=== PATIENT | female | born 1985 | race American Indian/Alaskan Native ===

== ENCOUNTER 2016-10-10 12:34 | Inpatient (IN) | payer MEDICAID ==
[~2016-10-10] VITALS: Ht 167.6 cm; Wt 113.4 kg
[2016-10-10 17:32] VITALS: BP 118/72
[2016-10-10] MEDS ORDERED: LURA40 PO (17:54)
[2016-10-10] MEDS ORDERED: FLUO-191 PO (17:54)
[2016-10-10] MEDS ORDERED: PALI6 PO (17:54)
[2016-10-10] MEDS ORDERED: ZOLPIDEM TARTRATE 10 MG TABLET PO PRN (18:15)
[2016-10-10 20:26] VITALS: BP 124/86
[2016-10-11] MEDS ORDERED: MAG HYDROX/AL HYDROX/SIMETH ES 30 ML SUSPENSION UDCUP PO PRN (07:30)
[2016-10-11] MEDS ORDERED: CloNIDine HCL 0.1 MG TABLET PO PRN (07:30)
[2016-10-11] MEDS ORDERED: BENZOCAINE/MENTHOL LOZENGE MM PRN (07:30)
[2016-10-11] MEDS ORDERED: MAGNESIUM HYDROXIDE SUSPENSION 30 ML UDCUP PO PRN (07:30)
[2016-10-11] MEDS ORDERED: LOPERAMIDE HCL 2 MG CAPSULE PO PRN (07:30)
[2016-10-11] MEDS ORDERED: PETROLATUM,WHITE 71 GM JELLY TP PRN (07:30)
[2016-10-11] MEDS ORDERED: BACITRACIN 28.4 GM OINTMENT TP PRN (07:30)
[2016-10-11] MEDS ORDERED: ONDANSETRON HCL 4 MG TABLET PO PRN (07:30)
[2016-10-11] MEDS ORDERED: ALBUTEROL SULFATE HFA 90 MCG/PUFF 8 GM INHALER IH PRN (07:30)
[2016-10-11 08:04] LABS: BASOPHILS # (AUTO) 0.02 K/uL (0.00-0.20); BASOPHILS % (AUTO) 0.2 % (0.0-2.0); EOSINOPHILS # (AUTO) 0.09 K/uL (0.00-0.70); EOSINOPHILS % (AUTO) 0.91 % (1.0-6.0); HEMATOCRIT 46.2 % (36-46); HEMOGLOBIN 15.3 g/dL (12.0-16.0); LYMPHOCYTES # (AUTO) 3.8 K/uL (1.0-4.8); LYMPHOCYTES % (AUTO) 39.1 % (22.0-44.0); MEAN CORPUSCULAR HEMOGLOBIN 29.8 pg (26.0-34.0); MEAN CORPUSCULAR VOLUME 90 fL (80-100); MONOCYTES # (AUTO) 0.6 K/uL (0.1-1.0); NEUTROPHILS # (AUTO) 5.2 K/uL (1.8-7.7); NEUTROPHILS % (AUTO) 53.8 % (40.0-70.0); PLATELET COUNT (AUTO) 306 K/uL (150-450); RED BLOOD CELL COUNT(AUTO) 5.12 MIL/uL (4.00-5.20); RED CELL DISTRIBUTION WIDTH 14.3 % (11.5-14.5); WHITE BLOOD COUNT (AUTO) 9.7 K/uL (4.5-11.0)
[2016-10-11 08:37] VITALS: BP 120/77
[2016-10-11 08:37] LABS: ALANINE AMINOTRANSFERASE 39 U/L (12-78); ALBUMIN 3.5 g/dL (3.4-5.0); ANION GAP 10 mmol/L (8-16); ASPARTATE AMINOTRANSFERASE 21 U/L (15-37); BILIRUBIN,TOTAL 0.6 mg/dL (0.1-1.0); CALCIUM, TOTAL 8.7 mg/dL (8.8-10.5); CARBON DIOXIDE 24 mmol/L (22-29); CHLORIDE 106 mmol/L (98-107); CREATININE 0.68 mg/dL (0.60-1.30); GLOMERULAR FILTR. RATE CALC > 60 mL/min (>60); POTASSIUM 4.1 mmol/L (3.5-5.1); SODIUM SERUM 140 mmol/L (136-145); THYROID STIMULATING HORMONE 0.71 uIU/mL (0.36-3.74); TOTAL PROTEIN, SERUM 7.5 g/dL (6.4-8.2); UREA NITROGEN, BLOOD 7 mg/dL (7-18)
[2016-10-11] MEDS: FLUoxetine HCL 20 MG CAPSULE PO SCH (09:45)
[2016-10-11] MEDS: LORazepam 2 MG TABLET PO PRN ×2 (12:05→17:01)
[2016-10-11] MEDS: IBUPROFEN 600 MG TABLET PO PRN (12:33)
[2016-10-11 16:38] VITALS: BP 117/80
[2016-10-11] MEDS: OLANZapine 10 MG TABLET PO SCH (20:36)
[2016-10-11] MEDS ORDERED: OLANZapine 5 MG TABLET PO SCH (21:00)
[2016-10-11] MEDS ORDERED: PNEUMOCOCCAL VACCINE POLYVALENT 0.5 ML VIAL [PPSV23] IM ONE (21:45)
[2016-10-12 06:12] VITALS: BP 129/89
[2016-10-12 08:10] VITALS: BP 124/70
[2016-10-12] MEDS: FLUoxetine HCL 20 MG CAPSULE PO SCH (09:36)
[2016-10-12] MEDS: LORazepam 2 MG TABLET PO PRN (14:26)
[2016-10-12] MEDS: IBUPROFEN 600 MG TABLET PO PRN (14:26)
[2016-10-12 16:15] VITALS: BP 132/83
[2016-10-12 16:30] VITALS: BP 130/78
[2016-10-12] MEDS: HALOPERIDOL 5 MG TABLET PO PRN (16:55)
[2016-10-12] MEDS: OLANZapine 10 MG TABLET PO SCH (20:20)
[2016-10-13] MEDS: LORazepam 2 MG TABLET PO PRN (06:53)
[2016-10-13] MEDS: IBUPROFEN 600 MG TABLET PO PRN (07:07)
[2016-10-13] MEDS: FLUoxetine HCL 20 MG CAPSULE PO SCH (08:16)
[2016-10-13 08:18] VITALS: BP 128/58
[2016-10-13] MEDS ORDERED: BENZOCAINE/MENTHOL LOZENGE PO PRN (12:30)
[2016-10-13 16:00] VITALS: BP 135/80
[2016-10-13] MEDS: OLANZapine 10 MG TABLET PO SCH (20:42)
[2016-10-14] MEDS: LORazepam 2 MG TABLET PO PRN ×2 (04:00→15:47)
[2016-10-14] MEDS: IBUPROFEN 600 MG TABLET PO PRN ×2 (04:40→13:21)
[2016-10-14] MEDS: FLUoxetine HCL 20 MG CAPSULE PO SCH (08:14)
[2016-10-14 08:53] VITALS: BP 123/80
[2016-10-14 09:19] LABS: APPEARANCE,URINE CLEAR (CLEAR); GLUCOSE, URINE (UA) NEGATIVE (NEGATIVE); KETONES,URINE NEGATIVE (NEGATIVE); LEUKOCYTE ESTERASE ,URINE MODERATE (NEGATIVE); OCCULT BLOOD,URINE NEGATIVE (NEGATIVE); PROTEIN,URINE NEGATIVE (NEGATIVE)
[2016-10-14 09:35] LABS: ADD UA MICROSCOPIC YES
[2016-10-14 09:39] LABS: RBC,URINE 0-2 /HPF (0-2); SQUAMOUS EPITHELIAL CELL,UR Moderate /LPF (None Seen)
[2016-10-14 13:15] VITALS: BP 126/80
[2016-10-14 14:10] VITALS: BP 126/77
[2016-10-14 16:02] VITALS: BP 125/79
[2016-10-14] MEDS: HALOPERIDOL 5 MG TABLET PO PRN (16:19)
[2016-10-14] MEDS: OLANZapine 10 MG TABLET PO SCH (20:13)
[2016-10-15] MEDS: IBUPROFEN 600 MG TABLET PO PRN (06:51)
[2016-10-15] MEDS: HydrOXYzine PAMOATE 25 MG CAPSULE PO PRN (06:51)
[2016-10-15 08:27] VITALS: BP 134/73
[2016-10-15] MEDS ORDERED: FLUoxetine HCL 20 MG CAPSULE PO SCH (09:00)
[2016-10-15] MEDS: CIPROFLOXACIN HCL 250 MG TABLET PO SCH ×2 (09:19→17:04)
[2016-10-15] MEDS: HALOPERIDOL 5 MG TABLET PO PRN ×2 (09:20→17:04)
[2016-10-15] MEDS: ACETAMINOPHEN 325 MG TABLET PO PRN (13:40)
[2016-10-15 16:39] VITALS: BP 121/98
[2016-10-15] MEDS ORDERED: OLANZapine 10 MG TABLET PO SCH (21:00)
[2016-10-16 03:19] VITALS: BP 118/86
[2016-10-16] MEDS: IBUPROFEN 600 MG TABLET PO PRN (03:27)
[2016-10-16 08:24] VITALS: BP 104/55
[2016-10-16] MEDS: CIPROFLOXACIN HCL 250 MG TABLET PO SCH ×2 (08:41→17:37)
[2016-10-16] MEDS ORDERED: FLUoxetine HCL 20 MG CAPSULE PO SCH (09:00)
[2016-10-16] MEDS: HydrOXYzine PAMOATE 25 MG CAPSULE PO PRN (13:23)
[2016-10-16] MEDS: HALOPERIDOL 5 MG TABLET PO PRN (13:23)
[2016-10-16 16:11] VITALS: BP 137/78
[2016-10-16] MEDS ORDERED: OLANZapine 10 MG TABLET PO SCH (21:00)
[2016-10-17 06:33] VITALS: BP 135/72
[2016-10-17 08:17] VITALS: BP 138/70
[2016-10-17] MEDS: CIPROFLOXACIN HCL 250 MG TABLET PO SCH (08:59)
[2016-10-17] MEDS ORDERED: FLUoxetine HCL 20 MG CAPSULE PO SCH (09:00)
[2016-10-17] MEDS: ACETAMINOPHEN 325 MG TABLET PO PRN (10:30)
[2016-10-17] MEDS ORDERED: OLAN10TA3 PO (11:11)
[2016-10-17] MEDS ORDERED: CIP250 PO (11:11)
== END 2016-10-17 13:30 | disposition home or self-care (01) | DRG 751 ==
LOC: B3A 19:17
PROVIDERS: ADMIT Psychiatry & Neurology Psychiatry; ATTEND Psychiatry & Neurology Psychiatry
PROC: HZ37ZZZ Individual Counseling for Substance Abuse Treatment, Motivational Enhancement (ICD-10-PCS; principal; 2016-10-11)
DX: F29 Unspecified psychosis not due to a substance or known physiological condition (principal); R45.851 Suicidal ideations; F15.20 Other stimulant dependence, uncomplicated; J45.909 Unspecified asthma, uncomplicated; F12.90 Cannabis use, unspecified, uncomplicated; F17.200 Nicotine dependence, unspecified, uncomplicated; E66.01 Morbid (severe) obesity due to excess calories; K59.00 Constipation, unspecified; F20.0 Paranoid schizophrenia; N39.0 Urinary tract infection, site not specified; F32.9 Major depressive disorder, single episode, unspecified; Z81.8 Family history of other mental and behavioral disorders; Z71.6 Tobacco abuse counseling; Z68.41 Body mass index [BMI] 40.0-44.9, adult; Z71.51 Drug abuse counseling and surveillance of drug abuser; Z28.21 Immunization not carried out because of patient refusal; Z79.899 Other long term (current) drug therapy
CPT/HCPCS: 80307; 84436; 84439; 84443; J3535

== ENCOUNTER 2016-12-16 15:35 | Inpatient (IN) | payer MEDICAID, OTHER ==
[~2016-12-16] VITALS: Ht 167.6 cm; Wt 112.4 kg
[~2016-12-16 15:35] MED LIST: CIP250 PO; FLUO-191 PO; OLAN10TA3 PO
[2016-12-16] MEDS ORDERED: ACETAMINOPHEN 500 MG TABLET PO ONE (17:15)
[2016-12-16] MEDS ORDERED: LORazepam 2 MG TABLET PO ONE (17:15)
[2016-12-16] MEDS ORDERED: HALOPERIDOL 5 MG TABLET PO ONE (17:15)
[2016-12-16 17:37] LABS: EOSINOPHILS % (AUTO) 1.3 % (1.0-6.0); HEMATOCRIT 43.8 % (36-46); LYMPHOCYTES # (AUTO) 3.9 K/uL (1.0-4.8); LYMPHOCYTES % (AUTO) 32.3 % (22.0-44.0); MEAN CORPUSCULAR HEMOGLOBIN 30.3 pg (26.0-34.0); MEAN CORPUSCULAR HGB CONC 34.2 G/dL (31.0-37.0); MEAN CORPUSCULAR VOLUME 89 fL (80-100); MONOCYTES # (AUTO) 0.6 K/uL (0.1-1.0); MONOCYTES % (AUTO) 5.1 % (2.0-9.0); NEUTROPHILS # (AUTO) 7.3 K/uL (1.8-7.7); NEUTROPHILS % (AUTO) 60.3 % (40.0-70.0); PLATELET COUNT (AUTO) 345 K/uL (150-450); RED BLOOD CELL COUNT(AUTO) 4.94 MIL/uL (4.00-5.20); RED CELL DISTRIBUTION WIDTH 13.9 % (11.5-14.5); WHITE BLOOD COUNT (AUTO) 12.1 K/uL (4.5-11.0)
[2016-12-16 17:44] LABS: ANION GAP 11 mmol/L (8-16); CALCIUM, TOTAL 8.7 mg/dL (8.8-10.5); CARBON DIOXIDE 24 mmol/L (22-29); CHLORIDE 105 mmol/L (98-107); CREATININE 0.82 mg/dL (0.60-1.30); GLOMERULAR FILTR. RATE CALC > 60 mL/min (>60); POTASSIUM 3.6 mmol/L (3.5-5.1); SODIUM SERUM 140 mmol/L (136-145); UREA NITROGEN, BLOOD 3 mg/dL (7-18)
[2016-12-16 17:50] LABS: APPEARANCE,URINE CLEAR (CLEAR); GLUCOSE, URINE (UA) NEGATIVE (NEGATIVE); KETONES,URINE NEGATIVE (NEGATIVE); OCCULT BLOOD,URINE NEGATIVE (NEGATIVE); PROTEIN,URINE NEGATIVE (NEGATIVE)
[2016-12-16 17:51] LABS: ALANINE AMINOTRANSFERASE 38 U/L (12-78); ALBUMIN 3.3 g/dL (3.4-5.0); ASPARTATE AMINOTRANSFERASE 20 U/L (15-37); BILIRUBIN,TOTAL 0.2 mg/dL (0.1-1.0); TOTAL PROTEIN, SERUM 7.5 g/dL (6.4-8.2)
[2016-12-16 17:53] LABS: LEUKOCYTE ESTERASE ,URINE SMALL (NEGATIVE); RBC,URINE 0-2 /HPF (0-2); SQUAMOUS EPITHELIAL CELL,UR Few /LPF (None Seen)
[2016-12-16] MEDS ORDERED: PROMETHAZINE HCL 25 MG TABLET PO PRN (18:00)
[2016-12-16] MEDS ORDERED: TUBERCULIN, PURIFIED PROTEIN DERIVATIVE 5 TU/0.1 ML SYG ID ONE (18:00)
[2016-12-16] MEDS ORDERED: HydrOXYzine PAMOATE 50 MG CAPSULE PO PRN (18:00)
[2016-12-16] MEDS ORDERED: GuaiFENesin/D-METHORPHAN [SUGAR-FREE] 200-20MG/10 ML SYRUP UDCUP PO PRN (18:00)
[2016-12-16] MEDS ORDERED: ZOLPIDEM TARTRATE 10 MG TABLET PO PRN (18:00)
[2016-12-16] MEDS ORDERED: LOPERAMIDE HCL 2 MG CAPSULE PO PRN (18:00)
[2016-12-16] MEDS ORDERED: MAGNESIUM HYDROXIDE SUSPENSION 30 ML UDCUP PO PRN (18:00)
[2016-12-16] MEDS ORDERED: OLANZapine 5 MG RAPDIS TABLET PO PRN (18:00)
[2016-12-16] MEDS ORDERED: MAG HYDROX/AL HYDROX/SIMETH ES 30 ML SUSPENSION UDCUP PO PRN (18:00)
[2016-12-16] MEDS ORDERED: PALIPERIDONE 3 MG ER TABLET PO PRN (18:15)
[2016-12-16] MEDS ORDERED: PALIPERIDONE PALMITATE 234 MG/1.5 ML SYRINGE IM ONE (18:15)
[2016-12-16] MEDS ORDERED: CEPHALEXIN MONOHYDRATE 500 MG CAPSULE PO ONE (18:30)
[2016-12-16] MEDS ORDERED: OLANZapine 5 MG RAPDIS TABLET PO SCH (21:00)
[2016-12-16 21:47] VITALS: BP 137/75
[2016-12-16] MEDS ORDERED: PNEUMOCOCCAL VACCINE POLYVALENT 0.5 ML VIAL [PPSV23] IM ONE (22:00)
[2016-12-16] MEDS: PALIPERIDONE 6 MG ER TABLET PO SCH (22:09)
[2016-12-16] MEDS: THIAMINE HCL 100 MG TABLET PO SCH (22:09)
[2016-12-17 06:22] VITALS: BP 112/63
[2016-12-17] MEDS: FOLIC ACID 1 MG TABLET PO SCH (09:03)
[2016-12-17] MEDS: FLUoxetine HCL 20 MG CAPSULE PO SCH (09:03)
[2016-12-17] MEDS: NALTREXONE HCL 50 MG TABLET PO SCH (09:03)
[2016-12-17] MEDS: MULTIVITAMINS WITH MINERALS, THERAPEUTIC TABLET PO SCH (09:03)
[2016-12-17] MEDS: CEPHALEXIN MONOHYDRATE 500 MG CAPSULE PO SCH ×3 (09:03→16:39)
[2016-12-17] MEDS: THIAMINE HCL 100 MG TABLET PO SCH ×2 (09:04→16:39)
[2016-12-17] MEDS: LORazepam 2 MG TABLET PO PRN (11:46)
[2016-12-17 16:00] VITALS: BP 122/81
[2016-12-17] MEDS: PALIPERIDONE 6 MG ER TABLET PO SCH (20:29)
[2016-12-18 06:25] VITALS: BP 117/71
[2016-12-18] MEDS: THIAMINE HCL 100 MG TABLET PO SCH ×2 (08:13→16:36)
[2016-12-18 08:14] VITALS: BP 135/78
[2016-12-18] MEDS: MULTIVITAMINS WITH MINERALS, THERAPEUTIC TABLET PO SCH (08:14)
[2016-12-18] MEDS: ACETAMINOPHEN 325 MG TABLET PO PRN (08:14)
[2016-12-18] MEDS: FLUoxetine HCL 20 MG CAPSULE PO SCH (08:14)
[2016-12-18] MEDS: LORazepam 2 MG TABLET PO PRN ×2 (08:14→13:45)
[2016-12-18] MEDS: NALTREXONE HCL 50 MG TABLET PO SCH (08:14)
[2016-12-18] MEDS: FOLIC ACID 1 MG TABLET PO SCH (08:14)
[2016-12-18 08:40] LABS: BASOPHILS # (AUTO) 0.03 K/uL (0.00-0.20); BASOPHILS % (AUTO) 0.3 % (0.0-2.0); EOSINOPHILS % (AUTO) 0.83 % (1.0-6.0); HEMATOCRIT 44.9 % (36-46); HEMOGLOBIN 14.9 g/dL (12.0-16.0); LYMPHOCYTES # (AUTO) 4.2 K/uL (1.0-4.8); MEAN CORPUSCULAR HEMOGLOBIN 30.2 pg (26.0-34.0); MEAN CORPUSCULAR HGB CONC 33.1 G/dL (31.0-37.0); MEAN CORPUSCULAR VOLUME 91 fL (80-100); MONOCYTES # (AUTO) 0.6 K/uL (0.1-1.0); NEUTROPHILS # (AUTO) 6.8 K/uL (1.8-7.7); NEUTROPHILS % (AUTO) 57.9 % (40.0-70.0); PLATELET COUNT (AUTO) 324 K/uL (150-450); RED BLOOD CELL COUNT(AUTO) 4.93 MIL/uL (4.00-5.20); RED CELL DISTRIBUTION WIDTH 13.8 % (11.5-14.5); WHITE BLOOD COUNT (AUTO) 11.7 K/uL (4.5-11.0)
[2016-12-18 09:07] VITALS: BP 148/76
[2016-12-18] MEDS ORDERED: IBUPROFEN 600 MG TABLET PO PRN (11:15)
[2016-12-18 12:31] VITALS: BP 138/77
[2016-12-18 16:03] VITALS: BP 130/84
[2016-12-18] MEDS: PALIPERIDONE 6 MG ER TABLET PO SCH (20:37)
[2016-12-19 05:50] VITALS: BP 129/85
[2016-12-19 08:03] LABS: HEMATOCRIT 43.5 % (36-46); HEMOGLOBIN 14.4 g/dL (12.0-16.0); MEAN CORPUSCULAR HEMOGLOBIN 30.3 pg (26.0-34.0); MEAN CORPUSCULAR HGB CONC 33.2 G/dL (31.0-37.0); MEAN CORPUSCULAR VOLUME 91 fL (80-100); PLATELET COUNT (AUTO) 311 K/uL (150-450); RED BLOOD CELL COUNT(AUTO) 4.76 MIL/uL (4.00-5.20); RED CELL DISTRIBUTION WIDTH 13.9 % (11.5-14.5); WHITE BLOOD COUNT (AUTO) 9.8 K/uL (4.5-11.0)
[2016-12-19 08:33] LABS: ANION GAP 10 mmol/L (8-16); CARBON DIOXIDE 24 mmol/L (22-29); CHLORIDE 106 mmol/L (98-107); CREATININE 0.72 mg/dL (0.60-1.30); GLOMERULAR FILTR. RATE CALC > 60 mL/min (>60); POTASSIUM 3.8 mmol/L (3.5-5.1); SODIUM SERUM 140 mmol/L (136-145); UREA NITROGEN, BLOOD 10 mg/dL (7-18)
[2016-12-19 08:37] LABS: HEMOGLOBIN A1C 5.6 % (4.5-6.2)
[2016-12-19 08:50] VITALS: BP 114/70
[2016-12-19] MEDS: MULTIVITAMINS WITH MINERALS, THERAPEUTIC TABLET PO SCH (08:54)
[2016-12-19] MEDS: FLUoxetine HCL 20 MG CAPSULE PO SCH (08:54)
[2016-12-19] MEDS: FOLIC ACID 1 MG TABLET PO SCH (08:54)
[2016-12-19] MEDS: NALTREXONE HCL 50 MG TABLET PO SCH (08:54)
[2016-12-19] MEDS: ACETAMINOPHEN 325 MG TABLET PO PRN (08:55)
[2016-12-19] MEDS: LORazepam 2 MG TABLET PO PRN ×2 (08:55→16:27)
[2016-12-19] MEDS: THIAMINE HCL 100 MG TABLET PO SCH ×2 (08:55→16:27)
[2016-12-19] MEDS ORDERED: PALI234D IM (13:37)
[2016-12-19] MEDS ORDERED: NALT50 PO (13:37)
[2016-12-19] MEDS ORDERED: FLUO-191 PO (13:37)
[2016-12-19 14:07] LABS: TOTAL CELLS COUNTED 100
[2016-12-19 14:10] LABS: LYMPHOCYTES % (MANUAL) 27 % (22-44)
[2016-12-19 16:20] VITALS: BP 124/83
[2016-12-20 03:40] VITALS: BP 122/74
[2016-12-20] MEDS: ACETAMINOPHEN 325 MG TABLET PO PRN (03:42)
[2016-12-20] MEDS: LORazepam 2 MG TABLET PO PRN ×2 (06:00→08:35)
[2016-12-20 08:15] VITALS: BP 133/73
[2016-12-20] MEDS: MULTIVITAMINS WITH MINERALS, THERAPEUTIC TABLET PO SCH (08:35)
[2016-12-20] MEDS: FLUoxetine HCL 20 MG CAPSULE PO SCH (08:35)
[2016-12-20] MEDS: NALTREXONE HCL 50 MG TABLET PO SCH (08:35)
[2016-12-20] MEDS: THIAMINE HCL 100 MG TABLET PO SCH (08:35)
[2016-12-20] MEDS: FOLIC ACID 1 MG TABLET PO SCH (08:35)
[2016-12-20] MEDS ORDERED: PALIPERIDONE PALMITATE 156 MG/ML SYRINGE IM ONE (09:00)
[2016-12-20] MEDS ORDERED: HC530C TP (10:24)
[2016-12-20] MEDS ORDERED: HYDROCORTISONE 0.5% 30 GM CREAM TP SCH (10:30)
== END 2016-12-20 12:30 | disposition home or self-care (01) | DRG 753 ==
LOC: EMS 15:39 → B3A 19:40
PROVIDERS: ADMIT Psychiatry & Neurology Psychiatry; ATTEND Psychiatry & Neurology Psychiatry
DX: F31.2 Bipolar disorder, current episode manic severe with psychotic features (principal); G93.41 Metabolic encephalopathy; K50.90 Crohn's disease, unspecified, without complications; N39.0 Urinary tract infection, site not specified; E83.51 Hypocalcemia; Z68.41 Body mass index [BMI] 40.0-44.9, adult; E66.01 Morbid (severe) obesity due to excess calories; F19.20 Other psychoactive substance dependence, uncomplicated; J45.909 Unspecified asthma, uncomplicated; Z72.0 Tobacco use; G47.00 Insomnia, unspecified; F10.10 Alcohol abuse, uncomplicated; R51 Headache
CPT/HCPCS: 82306; 83036; 83735; 84100; 85007; 87081; 87086; 90471; 99285

== ENCOUNTER 2019-01-02 00:29 | Emergency (ER) | payer MEDICAID, OTHER ==
[~2019-01-02] VITALS: Ht 167.6 cm; Wt 120.5 kg
[~2019-01-02 00:29] MED LIST changes: -CIP250 PO; +HC530C TP; +NALT50TA6 PO; -OLAN10TA3 PO; +PALI234D IM
[2019-01-02 01:36] LABS: BASOPHILS % (AUTO) 0.6 % (0.0-2.0); EOSINOPHILS % (AUTO) 0.8 % (1.0-6.0); HEMATOCRIT 43.2 % (36-46); HEMOGLOBIN 14.4 g/dL (12.0-16.0); LYMPHOCYTES % (AUTO) 36.8 % (22.0-44.0); MEAN CORPUSCULAR HEMOGLOBIN 31.4 pg (26.0-34.0); MEAN CORPUSCULAR HGB CONC 33.4 G/dL (31.0-37.0); MEAN CORPUSCULAR VOLUME 94 fL (80-100); MONOCYTES # (AUTO) 0.8 K/uL (0.1-1.0); MONOCYTES % (AUTO) 6.9 % (2.0-9.0); NEUTROPHILS # (AUTO) 5.9 K/uL (1.8-7.7); NEUTROPHILS % (AUTO) 54.9 % (40.0-70.0); PLATELET COUNT (AUTO) 246 K/uL (150-450); RED BLOOD CELL COUNT(AUTO) 4.59 MIL/uL (4.00-5.20); RED CELL DISTRIBUTION WIDTH 13.1 % (11.5-14.5)
[2019-01-02 01:47] LABS: ANION GAP 6 mmol/L (8-16); CALCIUM, TOTAL 8.8 mg/dL (8.8-10.5); CARBON DIOXIDE 27 mmol/L (22-29); CHLORIDE 107 mmol/L (98-107); GLOMERULAR FILTR. RATE CALC > 60 mL/min (>60); GLUCOSE,RANDOM 91 mg/dL (70-110); POTASSIUM 3.5 mmol/L (3.5-5.1); SODIUM SERUM 140 mmol/L (136-145); UREA NITROGEN, BLOOD 8 mg/dL (7-18)
[2019-01-02 01:55] LABS: B-TYPE NATRIURETIC PEPTIDE 11 pg/mL (0-100)
[2019-01-02 02:04] LABS: ALANINE AMINOTRANSFERASE 37 U/L (12-78); ALBUMIN 3.1 g/dL (3.4-5.0); ALKALINE PHOSPHATASE 78 U/L (46-116); ASPARTATE AMINOTRANSFERASE 24 U/L (15-37); BILIRUBIN,TOTAL 0.3 mg/dL (0.1-1.0); HCG,QUANTITATIVE < 1 mIU/mL (0-6)
[2019-01-02 03:30] LABS: AMPHET/METH SCREEN,URINE NEGATIVE (NEGATIVE); BARBITURATE SCREEN, URINE NEGATIVE (NEGATIVE); BENZODIAZEPINES SCREEN,URINE NEGATIVE (NEGATIVE); CANNABINOID SCREEN,URINE NEGATIVE (NEGATIVE); COCAINE SCREEN,URINE NEGATIVE (NEGATIVE); METHADONE SCREEN, URINE NEGATIVE (NEGATIVE); OPIATE SCREEN,URINE NEGATIVE (NEGATIVE)
[2019-01-02 03:31] LABS: PHENCYCLIDINE SCREEN,URINE NEGATIVE (NEGATIVE)
[2019-01-02 06:19] VITALS: BP 123/69
== END 2019-01-02 06:26 | disposition home or self-care (01) ==
LOC: EMS 00:31
DX: F20.0 Paranoid schizophrenia (principal); G47.9 Sleep disorder, unspecified; F32.9 Major depressive disorder, single episode, unspecified; F17.210 Nicotine dependence, cigarettes, uncomplicated; F12.90 Cannabis use, unspecified, uncomplicated; F19.90 Other psychoactive substance use, unspecified, uncomplicated
CPT/HCPCS: 36415; 80053; 80307; 83880; 84702; 85025; 99284; G0480

== ENCOUNTER 2022-04-19 13:27 | Inpatient (IN) | payer MEDICAID, OTHER ==
[~2022-04-19] VITALS: Ht 167.6 cm; Wt 124.9 kg
[~2022-04-19 13:27] MED LIST changes: +FLUO-177 PO; -FLUO-191 PO; -HC530C TP; +HYDR30CR44 TP
[2022-04-19] MEDS ORDERED: ARIP10TA38 PO (15:25)
[2022-04-19] MEDS ORDERED: LOPE-232 PO (15:25)
[2022-04-19] MEDS ORDERED: CHLO50TA61 PO (15:26)
[2022-04-19] MEDS ORDERED: CHLO200T21 PO (15:29)
[2022-04-19] MEDS ORDERED: AMLO2.5T96 PO (15:29)
[2022-04-19] MEDS ORDERED: CHLO50TA53 PO (15:29)
[2022-04-19] MEDS ORDERED: TADA5TAB PO (15:29)
[2022-04-19] MEDS ORDERED: DIVA-112 PO (15:32)
[2022-04-19] MEDS ORDERED: MECL-134 PO (15:32)
[2022-04-19] MEDS ORDERED: MULT-1203 PO (15:32)
[2022-04-19] MEDS ORDERED: SERT-162 PO (15:32)
[2022-04-19] MEDS ORDERED: LORA2I IM (15:32)
[2022-04-19] MEDS ORDERED: CHLO50I IM ×2 (15:39)
[2022-04-19] MEDS ORDERED: BENZ1LOZ77 PO (15:39)
[2022-04-19] MEDS ORDERED: ATOR20TA86 PO (15:39)
[2022-04-19] MEDS ORDERED: METF-1211 PO (15:39)
[2022-04-19] MEDS ORDERED: MELA1TAB17 PO (15:39)
[2022-04-19] MEDS ORDERED: TRAZ-252 PO (15:45)
[2022-04-19] MEDS ORDERED: MAG10ORA PO (15:45)
[2022-04-19] MEDS ORDERED: ACET-2247 PO (15:45)
[2022-04-19] MEDS ORDERED: HYDR50CA7 PO (15:45)
[2022-04-19] MEDS ORDERED: BISA10SU11 PR (15:45)
[2022-04-19] MEDS ORDERED: NA P133E4 PR (15:45)
[2022-04-19] MEDS ORDERED: MAGN-169 PO (15:45)
[2022-04-19 15:59] LABS: BASOPHILS % (AUTO) 0.8 % (0.0-2.0); EOSINOPHILS % (AUTO) 0.4 % (1.0-6.0); HEMATOCRIT 43.2 % (36-46); HEMOGLOBIN 14.6 g/dL (12.0-16.0); LYMPHOCYTES # (AUTO) 4.7 K/uL (1.0-4.8); LYMPHOCYTES % (AUTO) 36.8 % (22.0-44.0); MEAN CORPUSCULAR HEMOGLOBIN 32.3 pg (26.0-34.0); MEAN CORPUSCULAR HGB CONC 33.9 G/dL (31.0-37.0); MEAN CORPUSCULAR VOLUME 95 fL (80-100); MONOCYTES % (AUTO) 7.7 % (2.0-9.0); NEUTROPHILS # (AUTO) 6.9 K/uL (1.8-7.7); NEUTROPHILS % (AUTO) 54.3 % (40.0-70.0); PLATELET COUNT (AUTO) 271 K/uL (150-450); RED BLOOD CELL COUNT(AUTO) 4.53 MIL/uL (4.00-5.20); RED CELL DISTRIBUTION WIDTH 13.2 % (11.5-14.5)
[2022-04-19] MEDS ORDERED: OLANZapine 5 MG TABLET PO ONE (16:00)
[2022-04-19 16:12] LABS: COVID AG,FIA SOURCE NASAL SWAB
[2022-04-19 16:20] LABS: CHLORIDE 103 mmol/L (98-107); POTASSIUM 4.2 mmol/L (3.5-5.1); SODIUM SERUM 138 mmol/L (136-145)
[2022-04-19 16:34] LABS: ANION GAP 7 mmol/L (8-16); CALCIUM, TOTAL 9.5 mg/dL (8.8-10.5); CARBON DIOXIDE 28 mmol/L (22-29); CREATININE 0.82 mg/dL (0.60-1.30); GLUCOSE,RANDOM 121 mg/dL (70-110); UREA NITROGEN, BLOOD 8 mg/dL (7-18)
[2022-04-19 16:36] LABS: GLOMERULAR FILTR. RATE CALC > 60 mL/min (>60)
[2022-04-19 16:41] LABS: ALANINE AMINOTRANSFERASE 48 U/L (12-78); ALBUMIN 3.2 g/dL (3.4-5.0); ALKALINE PHOSPHATASE 70 U/L (46-116); ASPARTATE AMINOTRANSFERASE 24 U/L (15-37); BILIRUBIN,TOTAL 0.3 mg/dL (0.1-1.0); TOTAL PROTEIN, SERUM 7.4 g/dL (6.4-8.2)
[2022-04-19 20:15] VITALS: BP 125/80
[2022-04-19] MEDS ORDERED: INFLUENZA VIRUS VACCINE QVS 2022-23 (6MO+)/PF 60 MCG/0.5 ML SYRINGE IM. ONE (20:45)
[2022-04-19] MEDS ORDERED: PNEUMOCOCCAL VACCINE POLYVALENT 0.5 ML VIAL [PPSV23] IM. ONE (21:00)
[2022-04-20] MEDS: LORazepam 2 MG TABLET PO PRN (08:15)
[2022-04-20] MEDS: HALOPERIDOL 5 MG TABLET PO PRN (08:18)
[2022-04-20 08:53] VITALS: BP 145/89
[2022-04-20] MEDS ORDERED: DOCUSATE SODIUM 100 MG CAPSULE PO PRN (11:30)
[2022-04-20] MEDS ORDERED: NICOTINE 14 MG/24 HOUR PATCH TD PRN (11:30)
[2022-04-20] MEDS ORDERED: MAGNESIUM HYDROXIDE SUSPENSION 30 ML UDCUP PO PRN (11:30)
[2022-04-20] MEDS ORDERED: ONDANSETRON HCL 4 MG TABLET PO PRN (11:30)
[2022-04-20] MEDS ORDERED: CloNIDine HCL 0.1 MG TABLET PO PRN (11:30)
[2022-04-20] MEDS ORDERED: PETROLATUM,WHITE 28 GM JELLY TP PRN (11:30)
[2022-04-20] MEDS: SERTRALINE HCL 100 MG TABLET PO SCH (11:56)
[2022-04-20] MEDS: ChlorproMAZINE HCL 50 MG TABLET PO SCH (12:13)
[2022-04-20] MEDS: DIVALPROEX SODIUM 500 MG DR TABLET PO SCH ×2 (12:34→17:04)
[2022-04-20 16:07] VITALS: BP 120/68
[2022-04-20] MEDS: MetFORMIN HCL 500 MG TABLET PO SCH (17:42)
[2022-04-20] MEDS: ChlorproMAZINE HCL 100 MG TABLET PO SCH (20:40)
[2022-04-20] MEDS: ATORVASTATIN CALCIUM 20 MG TABLET PO SCH (20:40)
[2022-04-21] MEDS: MetFORMIN HCL 500 MG TABLET PO SCH ×2 (06:42→17:15)
[2022-04-21 07:21] LABS: APPEARANCE,URINE CLEAR (CLEAR); BILIRUBIN,URINE NEGATIVE (NEGATIVE); GLUCOSE, URINE (UA) NEGATIVE (NEGATIVE); KETONES,URINE NEGATIVE (NEGATIVE); LEUKOCYTE ESTERASE ,URINE SMALL (NEGATIVE); NITRATE,URINE NEGATIVE (NEGATIVE); OCCULT BLOOD,URINE NEGATIVE (NEGATIVE); PROTEIN,URINE TRACE mg/dL (NEGATIVE); SPECIFIC GRAVITIY, URINE 1.023 (1.003-1.030); UROBILINOGEN,URINE <=1.0 mg/dL (<=1.0)
[2022-04-21 07:37] LABS: AMPHET/METH SCREEN,URINE NEGATIVE (NEGATIVE); BARBITURATE SCREEN, URINE NEGATIVE (NEGATIVE); BENZODIAZEPINES SCREEN,URINE NEGATIVE (NEGATIVE); CANNABINOID SCREEN,URINE NEGATIVE (NEGATIVE); COCAINE SCREEN,URINE NEGATIVE (NEGATIVE); METHADONE SCREEN, URINE NEGATIVE (NEGATIVE); OPIATE SCREEN,URINE NEGATIVE (NEGATIVE)
[2022-04-21 07:38] LABS: PHENCYCLIDINE SCREEN,URINE NEGATIVE (NEGATIVE)
[2022-04-21 07:48] LABS: BACTERIA,URINE Few /HPF (None Seen); RBC,URINE None Seen /HPF (0-2); SQUAMOUS EPITHELIAL CELL,UR Few /LPF (None Seen); WBC,URINE 0-2 /HPF (0-5)
[2022-04-21] MEDS: DIVALPROEX SODIUM 500 MG DR TABLET PO SCH ×3 (08:19→17:15)
[2022-04-21] MEDS: AmLODIPine BESYLATE 2.5 MG TABLET PO SCH (08:19)
[2022-04-21] MEDS: ChlorproMAZINE HCL 50 MG TABLET PO SCH (08:19)
[2022-04-21] MEDS: SERTRALINE HCL 100 MG TABLET PO SCH (08:19)
[2022-04-21 08:39] VITALS: BP 130/90
[2022-04-21 16:40] VITALS: BP 121/83
[2022-04-21] MEDS: ChlorproMAZINE HCL 100 MG TABLET PO SCH (20:26)
[2022-04-21] MEDS: ATORVASTATIN CALCIUM 20 MG TABLET PO SCH (20:26)
[2022-04-22] MEDS: MetFORMIN HCL 500 MG TABLET PO SCH ×2 (06:34→16:48)
[2022-04-22 08:23] VITALS: BP 139/85
[2022-04-22] MEDS: SERTRALINE HCL 100 MG TABLET PO SCH (08:42)
[2022-04-22] MEDS: DIVALPROEX SODIUM 500 MG DR TABLET PO SCH ×3 (08:42→16:48)
[2022-04-22] MEDS: AmLODIPine BESYLATE 2.5 MG TABLET PO SCH (08:42)
[2022-04-22] MEDS: ChlorproMAZINE HCL 50 MG TABLET PO SCH (08:43)
[2022-04-22] MEDS: LORazepam 2 MG TABLET PO PRN (11:51)
[2022-04-22 16:09] VITALS: BP 132/77
[2022-04-22] MEDS: ATORVASTATIN CALCIUM 20 MG TABLET PO SCH (20:06)
[2022-04-22] MEDS: ChlorproMAZINE HCL 100 MG TABLET PO SCH (20:07)
[2022-04-23] MEDS: MetFORMIN HCL 500 MG TABLET PO SCH ×2 (06:36→17:12)
[2022-04-23 08:20] VITALS: BP 125/87
[2022-04-23] MEDS: AmLODIPine BESYLATE 2.5 MG TABLET PO SCH (09:20)
[2022-04-23] MEDS: DIVALPROEX SODIUM 500 MG DR TABLET PO SCH ×3 (09:20→17:12)
[2022-04-23] MEDS: ChlorproMAZINE HCL 50 MG TABLET PO SCH (09:20)
[2022-04-23] MEDS: SERTRALINE HCL 100 MG TABLET PO SCH (09:20)
[2022-04-23 16:38] VITALS: BP 118/72
[2022-04-23] MEDS: ChlorproMAZINE HCL 100 MG TABLET PO SCH (20:29)
[2022-04-23] MEDS: ATORVASTATIN CALCIUM 20 MG TABLET PO SCH (20:29)
[2022-04-24] MEDS: MetFORMIN HCL 500 MG TABLET PO SCH ×2 (06:44→16:45)
[2022-04-24] MEDS: ChlorproMAZINE HCL 50 MG TABLET PO SCH (08:24)
[2022-04-24] MEDS: SERTRALINE HCL 100 MG TABLET PO SCH (08:24)
[2022-04-24] MEDS: DIVALPROEX SODIUM 500 MG DR TABLET PO SCH ×3 (08:24→16:45)
[2022-04-24] MEDS: AmLODIPine BESYLATE 2.5 MG TABLET PO SCH (08:24)
[2022-04-24 08:38] VITALS: BP 150/88
[2022-04-24] MEDS: MAG HYDROX/AL HYDROX/SIMETH ES 30 ML SUSPENSION UDCUP PO PRN (08:44)
[2022-04-24] MEDS: LORazepam 2 MG TABLET PO PRN (08:44)
[2022-04-24 16:31] VITALS: BP 124/68
[2022-04-24] MEDS: ATORVASTATIN CALCIUM 20 MG TABLET PO SCH (20:26)
[2022-04-24] MEDS: ChlorproMAZINE HCL 100 MG TABLET PO SCH (20:26)
[2022-04-25] MEDS: MetFORMIN HCL 500 MG TABLET PO SCH ×2 (06:34→16:58)
[2022-04-25 08:30] VITALS: BP 150/100
[2022-04-25] MEDS: SERTRALINE HCL 100 MG TABLET PO SCH (08:32)
[2022-04-25] MEDS: ChlorproMAZINE HCL 50 MG TABLET PO SCH (08:32)
[2022-04-25] MEDS: DIVALPROEX SODIUM 500 MG DR TABLET PO SCH ×3 (08:33→16:58)
[2022-04-25] MEDS: AmLODIPine BESYLATE 2.5 MG TABLET PO SCH (08:33)
[2022-04-25 17:20] VITALS: BP 98/56
[2022-04-25] MEDS: ATORVASTATIN CALCIUM 20 MG TABLET PO SCH (20:58)
[2022-04-25] MEDS: ChlorproMAZINE HCL 100 MG TABLET PO SCH (20:58)
[2022-04-25] MEDS: HALOPERIDOL 5 MG TABLET PO PRN (20:58)
[2022-04-25] MEDS: LORazepam 2 MG TABLET PO PRN (20:59)
[2022-04-25 21:12] LABS: COVID AG,FIA SOURCE NASAL SWAB
[2022-04-26] MEDS: ZOLPIDEM TARTRATE 10 MG TABLET PO PRN ×2 (01:11→21:08)
[2022-04-26] MEDS: HALOPERIDOL 5 MG TABLET PO PRN ×2 (01:35→21:08)
[2022-04-26] MEDS: LORazepam 2 MG TABLET PO PRN ×2 (01:35→21:08)
[2022-04-26] MEDS: MetFORMIN HCL 500 MG TABLET PO SCH ×2 (06:35→16:14)
[2022-04-26 08:34] VITALS: BP 117/74
[2022-04-26] MEDS: ChlorproMAZINE HCL 50 MG TABLET PO SCH (08:43)
[2022-04-26] MEDS: AmLODIPine BESYLATE 2.5 MG TABLET PO SCH (08:47)
[2022-04-26] MEDS: DIVALPROEX SODIUM 500 MG DR TABLET PO SCH ×3 (08:47→16:14)
[2022-04-26] MEDS: SERTRALINE HCL 100 MG TABLET PO SCH (08:47)
[2022-04-26 17:17] VITALS: BP 137/76
[2022-04-26] MEDS ORDERED: BENZOCAINE/MENTHOL LOZENGE PO PRN (20:15)
[2022-04-26] MEDS: ATORVASTATIN CALCIUM 20 MG TABLET PO SCH (21:07)
[2022-04-26] MEDS: ChlorproMAZINE HCL 100 MG TABLET PO SCH (21:07)
[2022-04-27] MEDS: MetFORMIN HCL 500 MG TABLET PO SCH ×2 (06:32→16:24)
[2022-04-27] MEDS: ChlorproMAZINE HCL 50 MG TABLET PO SCH (08:17)
[2022-04-27] MEDS: DIVALPROEX SODIUM 500 MG DR TABLET PO SCH ×3 (08:18→16:24)
[2022-04-27] MEDS: AmLODIPine BESYLATE 2.5 MG TABLET PO SCH (08:18)
[2022-04-27] MEDS: SERTRALINE HCL 100 MG TABLET PO SCH (08:18)
[2022-04-27 09:24] VITALS: BP 139/97
[2022-04-27 16:16] VITALS: BP 138/71
[2022-04-27] MEDS: LORazepam 2 MG TABLET PO PRN (20:41)
[2022-04-27] MEDS: ChlorproMAZINE HCL 100 MG TABLET PO SCH (20:41)
[2022-04-27] MEDS: ATORVASTATIN CALCIUM 20 MG TABLET PO SCH (20:41)
[2022-04-27] MEDS: ZOLPIDEM TARTRATE 10 MG TABLET PO PRN (21:43)
[2022-04-28] MEDS: LORazepam 2 MG TABLET PO PRN ×2 (02:18→20:50)
[2022-04-28] MEDS: MetFORMIN HCL 500 MG TABLET PO SCH ×2 (06:30→16:11)
[2022-04-28 08:10] VITALS: BP 128/78
[2022-04-28] MEDS: DIVALPROEX SODIUM 500 MG DR TABLET PO SCH ×3 (08:19→16:11)
[2022-04-28] MEDS: SERTRALINE HCL 100 MG TABLET PO SCH (08:19)
[2022-04-28] MEDS: AmLODIPine BESYLATE 2.5 MG TABLET PO SCH (08:19)
[2022-04-28] MEDS: ChlorproMAZINE HCL 50 MG TABLET PO SCH (08:19)
[2022-04-28 16:15] VITALS: BP 105/68
[2022-04-28] MEDS: ATORVASTATIN CALCIUM 20 MG TABLET PO SCH (20:34)
[2022-04-28] MEDS: ChlorproMAZINE HCL 100 MG TABLET PO SCH (20:35)
[2022-04-28] MEDS: ZOLPIDEM TARTRATE 10 MG TABLET PO PRN (20:50)
[2022-04-28 21:47] VITALS: BP 130/86
[2022-04-29] MEDS: MetFORMIN HCL 500 MG TABLET PO SCH ×2 (06:34→17:30)
[2022-04-29] MEDS: LORazepam 2 MG TABLET PO PRN (08:09)
[2022-04-29] MEDS: ChlorproMAZINE HCL 50 MG TABLET PO SCH (08:09)
[2022-04-29] MEDS: DIVALPROEX SODIUM 500 MG DR TABLET PO SCH ×3 (08:09→17:30)
[2022-04-29] MEDS: AmLODIPine BESYLATE 2.5 MG TABLET PO SCH (08:09)
[2022-04-29] MEDS: SERTRALINE HCL 100 MG TABLET PO SCH (08:09)
[2022-04-29 08:53] VITALS: BP 132/87
[2022-04-29] MEDS: IBUPROFEN 400 MG TABLET PO PRN ×2 (09:13→21:59)
[2022-04-29 10:13] VITALS: BP 128/84
[2022-04-29 16:21] VITALS: BP 136/73
[2022-04-29] MEDS: ATORVASTATIN CALCIUM 20 MG TABLET PO SCH (21:04)
[2022-04-29] MEDS: ChlorproMAZINE HCL 100 MG TABLET PO SCH (21:04)
[2022-04-29 21:56] VITALS: BP 130/78
[2022-04-29] MEDS: ZOLPIDEM TARTRATE 10 MG TABLET PO PRN (22:26)
[2022-04-30] MEDS: MetFORMIN HCL 500 MG TABLET PO SCH ×2 (06:43→16:33)
[2022-04-30] MEDS: IBUPROFEN 400 MG TABLET PO PRN (08:02)
[2022-04-30] MEDS: SERTRALINE HCL 100 MG TABLET PO SCH (08:09)
[2022-04-30] MEDS: ChlorproMAZINE HCL 50 MG TABLET PO SCH (08:09)
[2022-04-30] MEDS: AmLODIPine BESYLATE 2.5 MG TABLET PO SCH (08:09)
[2022-04-30] MEDS: DIVALPROEX SODIUM 500 MG DR TABLET PO SCH ×3 (08:09→16:33)
[2022-04-30 08:21] VITALS: BP 143/94
[2022-04-30 16:39] VITALS: BP 116/72
[2022-04-30] MEDS: ChlorproMAZINE HCL 100 MG TABLET PO SCH (20:23)
[2022-04-30] MEDS: ATORVASTATIN CALCIUM 20 MG TABLET PO SCH (20:23)
[2022-04-30 21:24] VITALS: BP 139/90
[2022-04-30] MEDS: ZOLPIDEM TARTRATE 10 MG TABLET PO PRN (21:28)
[2022-04-30] MEDS: ACETAMINOPHEN 325 MG TABLET PO PRN (21:28)
[2022-05-01] MEDS: MetFORMIN HCL 500 MG TABLET PO SCH ×2 (07:05→16:28)
[2022-05-01 08:17] VITALS: BP 152/94
[2022-05-01] MEDS: DIVALPROEX SODIUM 500 MG DR TABLET PO SCH ×3 (08:20→16:28)
[2022-05-01] MEDS: ChlorproMAZINE HCL 50 MG TABLET PO SCH (08:20)
[2022-05-01] MEDS: AmLODIPine BESYLATE 2.5 MG TABLET PO SCH (08:20)
[2022-05-01] MEDS: SERTRALINE HCL 100 MG TABLET PO SCH (08:21)
[2022-05-01] MEDS: ALBUTEROL SULFATE HFA 90 MCG/PUFF 8 GM INHALER IH PRN ×2 (12:16→20:26)
[2022-05-01 16:08] VITALS: BP 128/73
[2022-05-01 20:45] VITALS: BP 125/75
[2022-05-01] MEDS: IBUPROFEN 400 MG TABLET PO PRN (20:47)
[2022-05-01] MEDS: ATORVASTATIN CALCIUM 20 MG TABLET PO SCH (20:52)
[2022-05-01] MEDS: ChlorproMAZINE HCL 100 MG TABLET PO SCH (20:52)
[2022-05-01] MEDS: ZOLPIDEM TARTRATE 10 MG TABLET PO PRN (23:59)
[2022-05-01] MEDS: LORazepam 2 MG TABLET PO PRN (23:59)
[2022-05-02 06:47] LABS: COVID AG,FIA SOURCE NASAL SWAB
[2022-05-02] MEDS: MetFORMIN HCL 500 MG TABLET PO SCH ×2 (07:04→17:51)
[2022-05-02] MEDS: SERTRALINE HCL 100 MG TABLET PO SCH (08:34)
[2022-05-02] MEDS: DIVALPROEX SODIUM 500 MG DR TABLET PO SCH ×3 (08:34→16:28)
[2022-05-02] MEDS: ChlorproMAZINE HCL 50 MG TABLET PO SCH (08:34)
[2022-05-02] MEDS: AmLODIPine BESYLATE 2.5 MG TABLET PO SCH (08:35)
[2022-05-02 10:00] VITALS: BP 115/62
[2022-05-02 16:00] VITALS: BP 117/57
[2022-05-02] MEDS: ALBUTEROL SULFATE HFA 90 MCG/PUFF 8 GM INHALER IH PRN (19:36)
[2022-05-02] MEDS: ChlorproMAZINE HCL 100 MG TABLET PO SCH (20:08)
[2022-05-02] MEDS: ATORVASTATIN CALCIUM 20 MG TABLET PO SCH (20:09)
[2022-05-02] MEDS: HALOPERIDOL 5 MG TABLET PO PRN (20:44)
[2022-05-02] MEDS: LORazepam 2 MG TABLET PO PRN (20:44)
[2022-05-03] MEDS: HALOPERIDOL 5 MG TABLET PO PRN (04:48)
[2022-05-03] MEDS: LORazepam 2 MG TABLET PO PRN (05:39)
[2022-05-03] MEDS: MetFORMIN HCL 500 MG TABLET PO SCH ×2 (06:34→17:38)
[2022-05-03 08:55] VITALS: BP 122/71
[2022-05-03] MEDS: AmLODIPine BESYLATE 2.5 MG TABLET PO SCH (09:06)
[2022-05-03] MEDS: ChlorproMAZINE HCL 50 MG TABLET PO SCH (09:06)
[2022-05-03] MEDS: SERTRALINE HCL 100 MG TABLET PO SCH (09:06)
[2022-05-03] MEDS: DIVALPROEX SODIUM 500 MG DR TABLET PO SCH ×3 (09:06→17:38)
[2022-05-03 16:05] VITALS: BP 126/72
[2022-05-03 17:53] VITALS: BP 118/62
[2022-05-03] MEDS: ATORVASTATIN CALCIUM 20 MG TABLET PO SCH (20:16)
[2022-05-03] MEDS: ChlorproMAZINE HCL 100 MG TABLET PO SCH (20:16)
[2022-05-03 22:40] VITALS: BP 131/83
[2022-05-03] MEDS: IBUPROFEN 400 MG TABLET PO PRN (22:44)
[2022-05-04] MEDS: MetFORMIN HCL 500 MG TABLET PO SCH ×2 (06:44→17:29)
[2022-05-04 07:51] LABS: CHOL/HDL RATIO 2.6 (3.9-5.7)
[2022-05-04 08:09] VITALS: BP 119/75
[2022-05-04] MEDS: DIVALPROEX SODIUM 500 MG DR TABLET PO SCH ×3 (08:41→17:28)
[2022-05-04] MEDS: SERTRALINE HCL 100 MG TABLET PO SCH (08:41)
[2022-05-04] MEDS: ChlorproMAZINE HCL 50 MG TABLET PO SCH (08:41)
[2022-05-04] MEDS: AmLODIPine BESYLATE 2.5 MG TABLET PO SCH (08:41)
[2022-05-04 11:24] VITALS: BP 124/78
[2022-05-04] MEDS: IBUPROFEN 400 MG TABLET PO PRN ×2 (11:24→20:49)
[2022-05-04 12:24] VITALS: BP 118/76
[2022-05-04 15:34] VITALS: BP 122/74
[2022-05-04] MEDS: ACETAMINOPHEN 325 MG TABLET PO PRN (15:34)
[2022-05-04 16:34] VITALS: BP 118/76
[2022-05-04] MEDS: GuaiFENesin/D-METHORPHAN [SUGAR-FREE] 200-20MG/10 ML SYRUP UDCUP PO PRN (18:51)
[2022-05-04] MEDS: ZOLPIDEM TARTRATE 10 MG TABLET PO PRN (20:07)
[2022-05-04] MEDS: ChlorproMAZINE HCL 100 MG TABLET PO SCH (20:07)
[2022-05-04] MEDS: ATORVASTATIN CALCIUM 20 MG TABLET PO SCH (20:07)
[2022-05-04 20:49] VITALS: BP 120/74
[2022-05-05] MEDS: MetFORMIN HCL 500 MG TABLET PO SCH ×2 (06:35→17:59)
[2022-05-05 08:00] VITALS: BP 125/66
[2022-05-05] MEDS: ChlorproMAZINE HCL 50 MG TABLET PO SCH (08:43)
[2022-05-05] MEDS: SERTRALINE HCL 100 MG TABLET PO SCH (08:43)
[2022-05-05] MEDS: LORazepam 2 MG TABLET PO PRN ×2 (08:43→16:34)
[2022-05-05] MEDS: DIVALPROEX SODIUM 500 MG DR TABLET PO SCH ×3 (08:43→17:59)
[2022-05-05] MEDS: AmLODIPine BESYLATE 2.5 MG TABLET PO SCH (08:43)
[2022-05-05] MEDS: ALBUTEROL SULFATE HFA 90 MCG/PUFF 8 GM INHALER IH PRN ×2 (11:36→16:33)
[2022-05-05 16:31] VITALS: BP 118/71
[2022-05-05] MEDS: HALOPERIDOL 5 MG TABLET PO PRN (16:33)
[2022-05-05] MEDS: IBUPROFEN 400 MG TABLET PO PRN (16:34)
[2022-05-05] MEDS: ATORVASTATIN CALCIUM 20 MG TABLET PO SCH (20:05)
[2022-05-05] MEDS: ChlorproMAZINE HCL 100 MG TABLET PO SCH (20:05)
[2022-05-05] MEDS: ZOLPIDEM TARTRATE 10 MG TABLET PO PRN (20:05)
[2022-05-05 20:46] VITALS: BP 127/63
[2022-05-05] MEDS: ACETAMINOPHEN 325 MG TABLET PO PRN (20:46)
[2022-05-06] MEDS: MetFORMIN HCL 500 MG TABLET PO SCH ×2 (06:37→18:19)
[2022-05-06] MEDS: DIVALPROEX SODIUM 500 MG DR TABLET PO SCH ×3 (09:32→18:19)
[2022-05-06] MEDS: LORazepam 2 MG TABLET PO PRN (09:32)
[2022-05-06] MEDS: AmLODIPine BESYLATE 2.5 MG TABLET PO SCH (09:32)
[2022-05-06] MEDS: ChlorproMAZINE HCL 50 MG TABLET PO SCH (09:32)
[2022-05-06] MEDS: SERTRALINE HCL 100 MG TABLET PO SCH (09:32)
[2022-05-06] MEDS: ALBUTEROL SULFATE HFA 90 MCG/PUFF 8 GM INHALER IH PRN (09:51)
[2022-05-06 11:28] VITALS: BP 132/73
[2022-05-06 17:05] VITALS: BP 140/88
[2022-05-06] MEDS: IBUPROFEN 400 MG TABLET PO PRN (18:20)
[2022-05-06] MEDS: HALOPERIDOL 5 MG TABLET PO PRN (19:26)
[2022-05-06] MEDS: ZOLPIDEM TARTRATE 10 MG TABLET PO PRN (20:23)
[2022-05-06] MEDS: ChlorproMAZINE HCL 100 MG TABLET PO SCH (20:23)
[2022-05-06] MEDS: ATORVASTATIN CALCIUM 20 MG TABLET PO SCH (20:23)
[2022-05-07] MEDS: MetFORMIN HCL 500 MG TABLET PO SCH ×2 (06:39→17:05)
[2022-05-07 08:26] VITALS: BP 114/63
[2022-05-07] MEDS: DIVALPROEX SODIUM 500 MG DR TABLET PO SCH ×3 (10:25→17:05)
[2022-05-07] MEDS: ChlorproMAZINE HCL 50 MG TABLET PO SCH (10:25)
[2022-05-07] MEDS: SERTRALINE HCL 100 MG TABLET PO SCH (10:25)
[2022-05-07] MEDS: AmLODIPine BESYLATE 2.5 MG TABLET PO SCH (10:25)
[2022-05-07 12:38] LABS: COVID AG,FIA SOURCE NASAL SWAB
[2022-05-07] MEDS: ALBUTEROL SULFATE HFA 90 MCG/PUFF 8 GM INHALER IH PRN ×2 (14:11→22:35)
[2022-05-07] MEDS: HALOPERIDOL 5 MG TABLET PO PRN ×2 (15:46→21:24)
[2022-05-07] MEDS: LORazepam 2 MG TABLET PO PRN (15:46)
[2022-05-07 16:12] VITALS: BP 106/72
[2022-05-07 17:05] VITALS: BP 106/72
[2022-05-07] MEDS: IBUPROFEN 400 MG TABLET PO PRN (17:05)
[2022-05-07 18:05] VITALS: BP 108/68
[2022-05-07] MEDS: ChlorproMAZINE HCL 100 MG TABLET PO SCH (20:55)
[2022-05-07] MEDS: ATORVASTATIN CALCIUM 20 MG TABLET PO SCH (20:55)
[2022-05-07] MEDS: ZOLPIDEM TARTRATE 10 MG TABLET PO PRN (21:24)
[2022-05-08] MEDS: MetFORMIN HCL 500 MG TABLET PO SCH ×2 (07:04→17:44)
[2022-05-08 08:58] VITALS: BP 124/90
[2022-05-08 09:16] LABS: BASOPHILS % (AUTO) 2.1 % (0.0-2.0); EOSINOPHILS % (AUTO) 1.3 % (1.0-6.0); HEMATOCRIT 41.4 % (36-46); HEMOGLOBIN 14.1 g/dL (12.0-16.0); LYMPHOCYTES # (AUTO) 2.8 K/uL (1.0-4.8); MEAN CORPUSCULAR HGB CONC 34.1 G/dL (31.0-37.0); MEAN CORPUSCULAR VOLUME 94 fL (80-100); MONOCYTES # (AUTO) 0.4 K/uL (0.1-1.0); MONOCYTES % (AUTO) 8.6 % (2.0-9.0); NEUTROPHILS # (AUTO) 1.7 K/uL (1.8-7.7); PLATELET COUNT (AUTO) 207 K/uL (150-450); RED CELL DISTRIBUTION WIDTH 12.9 % (11.5-14.5)
[2022-05-08] MEDS: ChlorproMAZINE HCL 50 MG TABLET PO SCH (11:16)
[2022-05-08] MEDS: AmLODIPine BESYLATE 2.5 MG TABLET PO SCH (11:16)
[2022-05-08] MEDS: DIVALPROEX SODIUM 500 MG DR TABLET PO SCH ×3 (11:16→17:44)
[2022-05-08] MEDS: SERTRALINE HCL 100 MG TABLET PO SCH (11:16)
[2022-05-08 13:56] VITALS: BP 124/91
[2022-05-08] MEDS: IBUPROFEN 400 MG TABLET PO PRN (13:56)
[2022-05-08 14:56] VITALS: BP 122/88
[2022-05-08] MEDS: LORazepam 2 MG TABLET PO PRN (14:58)
[2022-05-08] MEDS: HALOPERIDOL 5 MG TABLET PO PRN ×2 (14:58→21:00)
[2022-05-08] MEDS: ALBUTEROL SULFATE HFA 90 MCG/PUFF 8 GM INHALER IH PRN (17:09)
[2022-05-08] MEDS: ChlorproMAZINE HCL 100 MG TABLET PO SCH (20:42)
[2022-05-08] MEDS: ATORVASTATIN CALCIUM 20 MG TABLET PO SCH (20:42)
[2022-05-08] MEDS: ZOLPIDEM TARTRATE 10 MG TABLET PO PRN (20:59)
[2022-05-08] MEDS: LOPERAMIDE HCL 2 MG CAPSULE PO PRN (21:04)
[2022-05-09] MEDS: MetFORMIN HCL 500 MG TABLET PO SCH ×2 (07:00→16:41)
[2022-05-09 09:00] VITALS: BP 118/82
[2022-05-09] MEDS: AmLODIPine BESYLATE 2.5 MG TABLET PO SCH (09:02)
[2022-05-09] MEDS: ChlorproMAZINE HCL 50 MG TABLET PO SCH (09:02)
[2022-05-09] MEDS: DIVALPROEX SODIUM 500 MG DR TABLET PO SCH ×3 (09:02→16:41)
[2022-05-09] MEDS: SERTRALINE HCL 100 MG TABLET PO SCH (09:02)
[2022-05-09 15:49] VITALS: BP 124/84
[2022-05-09] MEDS: ACETAMINOPHEN 325 MG TABLET PO PRN (15:49)
[2022-05-09 16:00] VITALS: BP 124/84
[2022-05-09] MEDS: PEG 400/HYPROMELLOSE/GLYCERIN 15 ML OPHTHALMIC SOLUTION OU PRN (18:21)
[2022-05-09 19:47] VITALS: BP 129/82
[2022-05-09] MEDS: IBUPROFEN 400 MG TABLET PO PRN (19:48)
[2022-05-09] MEDS: ZOLPIDEM TARTRATE 10 MG TABLET PO PRN (20:14)
[2022-05-09] MEDS: ATORVASTATIN CALCIUM 20 MG TABLET PO SCH (20:14)
[2022-05-09] MEDS: ChlorproMAZINE HCL 100 MG TABLET PO SCH (20:14)
[2022-05-10] MEDS: MetFORMIN HCL 500 MG TABLET PO SCH ×2 (06:35→16:20)
[2022-05-10 08:00] VITALS: BP 117/67
[2022-05-10] MEDS: SERTRALINE HCL 100 MG TABLET PO SCH (09:17)
[2022-05-10] MEDS: DIVALPROEX SODIUM 500 MG DR TABLET PO SCH ×3 (09:17→16:20)
[2022-05-10] MEDS: ChlorproMAZINE HCL 50 MG TABLET PO SCH (09:17)
[2022-05-10] MEDS: AmLODIPine BESYLATE 2.5 MG TABLET PO SCH (09:17)
[2022-05-10 12:25] VITALS: BP 124/62
[2022-05-10] MEDS: ACETAMINOPHEN 325 MG TABLET PO PRN (12:25)
[2022-05-10] MEDS: ALBUTEROL SULFATE HFA 90 MCG/PUFF 8 GM INHALER IH PRN (12:29)
[2022-05-10 16:30] VITALS: BP 131/71
[2022-05-10] MEDS: IBUPROFEN 400 MG TABLET PO PRN (16:30)
[2022-05-10 16:40] VITALS: BP 131/71
[2022-05-10] MEDS: ZOLPIDEM TARTRATE 10 MG TABLET PO PRN (20:11)
[2022-05-10] MEDS: ChlorproMAZINE HCL 100 MG TABLET PO SCH (20:12)
[2022-05-10] MEDS: ATORVASTATIN CALCIUM 20 MG TABLET PO SCH (20:12)
[2022-05-11] MEDS: MetFORMIN HCL 500 MG TABLET PO SCH ×2 (06:36→17:11)
[2022-05-11] MEDS: AmLODIPine BESYLATE 2.5 MG TABLET PO SCH (08:01)
[2022-05-11] MEDS: SERTRALINE HCL 100 MG TABLET PO SCH (08:01)
[2022-05-11] MEDS: DIVALPROEX SODIUM 500 MG DR TABLET PO SCH ×3 (08:01→17:11)
[2022-05-11] MEDS: ChlorproMAZINE HCL 50 MG TABLET PO SCH (08:02)
[2022-05-11 08:22] VITALS: BP 131/77
[2022-05-11 14:00] VITALS: BP 133/88
[2022-05-11] MEDS: IBUPROFEN 400 MG TABLET PO PRN (14:00)
[2022-05-11 15:00] VITALS: BP 128/84
[2022-05-11 16:06] VITALS: BP 133/88
[2022-05-11] MEDS: HALOPERIDOL 5 MG TABLET PO PRN (18:26)
[2022-05-11] MEDS: ZOLPIDEM TARTRATE 10 MG TABLET PO PRN (20:05)
[2022-05-11] MEDS: ATORVASTATIN CALCIUM 20 MG TABLET PO SCH (20:05)
[2022-05-11] MEDS: ChlorproMAZINE HCL 100 MG TABLET PO SCH (20:06)
[2022-05-12] MEDS: MetFORMIN HCL 500 MG TABLET PO SCH ×2 (06:40→16:34)
[2022-05-12] MEDS: ChlorproMAZINE HCL 50 MG TABLET PO SCH (08:48)
[2022-05-12] MEDS: SERTRALINE HCL 100 MG TABLET PO SCH (08:49)
[2022-05-12] MEDS: DIVALPROEX SODIUM 500 MG DR TABLET PO SCH ×3 (08:49→16:34)
[2022-05-12] MEDS: AmLODIPine BESYLATE 2.5 MG TABLET PO SCH (08:51)
[2022-05-12 09:22] VITALS: BP 114/68
[2022-05-12 11:48] VITALS: BP 130/69
[2022-05-12] MEDS: IBUPROFEN 400 MG TABLET PO PRN (11:48)
[2022-05-12] MEDS: HALOPERIDOL 5 MG TABLET PO PRN ×2 (14:38→21:40)
[2022-05-12 16:19] VITALS: BP 155/93
[2022-05-12 17:06] LABS: GLUCOMETER DEV NAME(LOC) 3E.C; GLUCOSE,POINT OF CARE 105 MG/DL (70-110)
[2022-05-12] MEDS: LOPERAMIDE HCL 2 MG CAPSULE PO PRN (18:42)
[2022-05-12] MEDS: ChlorproMAZINE HCL 100 MG TABLET PO SCH (20:57)
[2022-05-12] MEDS: ATORVASTATIN CALCIUM 20 MG TABLET PO SCH (20:57)
[2022-05-13] MEDS: MetFORMIN HCL 500 MG TABLET PO SCH ×2 (06:36→18:07)
[2022-05-13 08:30] VITALS: BP 113/74
[2022-05-13] MEDS: ChlorproMAZINE HCL 50 MG TABLET PO SCH (10:20)
[2022-05-13] MEDS: AmLODIPine BESYLATE 2.5 MG TABLET PO SCH (10:20)
[2022-05-13] MEDS: DIVALPROEX SODIUM 500 MG DR TABLET PO SCH ×3 (10:20→18:07)
[2022-05-13] MEDS: SERTRALINE HCL 100 MG TABLET PO SCH (10:20)
[2022-05-13] MEDS: LORazepam 2 MG TABLET PO PRN (15:30)
[2022-05-13] MEDS: HALOPERIDOL 5 MG TABLET PO PRN (15:30)
[2022-05-13 16:41] VITALS: BP 127/69
[2022-05-13] MEDS: ChlorproMAZINE HCL 100 MG TABLET PO SCH (20:17)
[2022-05-13] MEDS: ATORVASTATIN CALCIUM 20 MG TABLET PO SCH (20:17)
[2022-05-14] MEDS: MetFORMIN HCL 500 MG TABLET PO SCH ×2 (06:57→17:01)
[2022-05-14 07:36] LABS: COVID AG,FIA SOURCE NASAL SWAB
[2022-05-14 08:16] VITALS: BP 114/72
[2022-05-14] MEDS: ChlorproMAZINE HCL 50 MG TABLET PO SCH (08:55)
[2022-05-14] MEDS: SERTRALINE HCL 100 MG TABLET PO SCH (08:58)
[2022-05-14] MEDS: DIVALPROEX SODIUM 500 MG DR TABLET PO SCH ×3 (08:58→17:01)
[2022-05-14] MEDS: HALOPERIDOL 5 MG TABLET PO PRN (08:58)
[2022-05-14] MEDS: AmLODIPine BESYLATE 2.5 MG TABLET PO SCH (08:58)
[2022-05-14] MEDS: LORazepam 2 MG TABLET PO PRN (08:58)
[2022-05-14 16:48] VITALS: BP 112/63
[2022-05-14] MEDS: ATORVASTATIN CALCIUM 20 MG TABLET PO SCH (20:35)
[2022-05-14] MEDS: ChlorproMAZINE HCL 100 MG TABLET PO SCH (20:35)
[2022-05-15] MEDS: MetFORMIN HCL 500 MG TABLET PO SCH ×2 (07:00→16:35)
[2022-05-15] MEDS: SERTRALINE HCL 100 MG TABLET PO SCH (08:41)
[2022-05-15] MEDS: AmLODIPine BESYLATE 2.5 MG TABLET PO SCH (08:41)
[2022-05-15] MEDS: ChlorproMAZINE HCL 50 MG TABLET PO SCH (08:41)
[2022-05-15] MEDS: DIVALPROEX SODIUM 500 MG DR TABLET PO SCH ×3 (08:41→16:35)
[2022-05-15 09:00] VITALS: BP 144/85
[2022-05-15 12:28] VITALS: BP 136/79
[2022-05-15] MEDS: ACETAMINOPHEN 325 MG TABLET PO PRN (12:28)
[2022-05-15 16:00] VITALS: BP 136/84
[2022-05-15 16:19] VITALS: BP 136/84
[2022-05-15] MEDS: IBUPROFEN 400 MG TABLET PO PRN (16:19)
[2022-05-15] MEDS: GuaiFENesin/D-METHORPHAN [SUGAR-FREE] 200-20MG/10 ML SYRUP UDCUP PO PRN (16:50)
[2022-05-15] MEDS: ZOLPIDEM TARTRATE 10 MG TABLET PO PRN (20:50)
[2022-05-15] MEDS: ChlorproMAZINE HCL 100 MG TABLET PO SCH (20:50)
[2022-05-15] MEDS: ATORVASTATIN CALCIUM 20 MG TABLET PO SCH (20:50)
[2022-05-16] MEDS: MetFORMIN HCL 500 MG TABLET PO SCH ×2 (06:34→16:23)
[2022-05-16] MEDS: ChlorproMAZINE HCL 50 MG TABLET PO SCH (08:13)
[2022-05-16] MEDS: SERTRALINE HCL 100 MG TABLET PO SCH (08:13)
[2022-05-16] MEDS: DIVALPROEX SODIUM 500 MG DR TABLET PO SCH ×3 (08:13→16:23)
[2022-05-16] MEDS: AmLODIPine BESYLATE 2.5 MG TABLET PO SCH (08:13)
[2022-05-16 09:58] VITALS: BP 152/87
[2022-05-16] MEDS: GuaiFENesin/D-METHORPHAN [SUGAR-FREE] 200-20MG/10 ML SYRUP UDCUP PO PRN (11:34)
[2022-05-16 11:37] VITALS: BP 139/74
[2022-05-16] MEDS: IBUPROFEN 400 MG TABLET PO PRN (11:37)
[2022-05-16] MEDS: HALOPERIDOL 5 MG TABLET PO PRN (14:57)
[2022-05-16 16:18] VITALS: BP 165/74
[2022-05-16 17:48] VITALS: BP 130/79
[2022-05-16] MEDS: ACETAMINOPHEN 325 MG TABLET PO PRN (17:48)
[2022-05-16] MEDS: ChlorproMAZINE HCL 100 MG TABLET PO SCH (20:24)
[2022-05-16] MEDS: ATORVASTATIN CALCIUM 20 MG TABLET PO SCH (20:38)
[2022-05-17] MEDS: MetFORMIN HCL 500 MG TABLET PO SCH ×2 (06:48→16:37)
[2022-05-17 08:00] VITALS: BP 125/75
[2022-05-17] MEDS: DIVALPROEX SODIUM 500 MG DR TABLET PO SCH ×3 (08:36→16:37)
[2022-05-17] MEDS: ChlorproMAZINE HCL 50 MG TABLET PO SCH (08:37)
[2022-05-17] MEDS: AmLODIPine BESYLATE 2.5 MG TABLET PO SCH (08:37)
[2022-05-17] MEDS: SERTRALINE HCL 100 MG TABLET PO SCH (08:37)
[2022-05-17 12:02] VITALS: BP 125/75
[2022-05-17] MEDS: GuaiFENesin/D-METHORPHAN [SUGAR-FREE] 200-20MG/10 ML SYRUP UDCUP PO PRN (15:01)
[2022-05-17] MEDS: IBUPROFEN 400 MG TABLET PO PRN (15:18)
[2022-05-17 16:00] VITALS: BP 159/100
[2022-05-17 16:15] VITALS: BP 140/88
[2022-05-17] MEDS: HALOPERIDOL 5 MG TABLET PO PRN (16:16)
[2022-05-17] MEDS: ATORVASTATIN CALCIUM 20 MG TABLET PO SCH (20:43)
[2022-05-17] MEDS: ChlorproMAZINE HCL 100 MG TABLET PO SCH (20:44)
[2022-05-18] MEDS: MetFORMIN HCL 500 MG TABLET PO SCH ×2 (06:35→16:34)
[2022-05-18 08:04] VITALS: BP 103/56
[2022-05-18] MEDS: AmLODIPine BESYLATE 2.5 MG TABLET PO SCH (08:18)
[2022-05-18] MEDS: ChlorproMAZINE HCL 50 MG TABLET PO SCH (08:18)
[2022-05-18] MEDS: SERTRALINE HCL 100 MG TABLET PO SCH (08:18)
[2022-05-18] MEDS: DIVALPROEX SODIUM 500 MG DR TABLET PO SCH ×4 (08:18→16:06)
[2022-05-18] MEDS: GuaiFENesin/D-METHORPHAN [SUGAR-FREE] 200-20MG/10 ML SYRUP UDCUP PO PRN (13:01)
[2022-05-18 14:41] VITALS: BP 113/63
[2022-05-18] MEDS: IBUPROFEN 400 MG TABLET PO PRN (14:41)
[2022-05-18] MEDS: ACETAMINOPHEN 325 MG TABLET PO PRN (15:57)
[2022-05-18 16:12] VITALS: BP 138/85
[2022-05-18] MEDS: HALOPERIDOL 5 MG TABLET PO PRN (16:41)
[2022-05-18] MEDS: ChlorproMAZINE HCL 100 MG TABLET PO SCH (20:18)
[2022-05-18] MEDS: ATORVASTATIN CALCIUM 20 MG TABLET PO SCH (20:19)
[2022-05-18] MEDS: ZOLPIDEM TARTRATE 10 MG TABLET PO PRN ×2 (20:19→21:30)
[2022-05-19] MEDS: MetFORMIN HCL 500 MG TABLET PO SCH ×2 (06:30→17:11)
[2022-05-19 08:35] VITALS: BP 103/46
[2022-05-19] MEDS: DIVALPROEX SODIUM 500 MG DR TABLET PO SCH ×3 (09:41→17:11)
[2022-05-19] MEDS: AmLODIPine BESYLATE 2.5 MG TABLET PO SCH (09:41)
[2022-05-19] MEDS: SERTRALINE HCL 100 MG TABLET PO SCH (09:41)
[2022-05-19] MEDS: ChlorproMAZINE HCL 50 MG TABLET PO SCH (09:41)
[2022-05-19 16:04] VITALS: BP 123/85
[2022-05-19] MEDS: ChlorproMAZINE HCL 100 MG TABLET PO SCH (20:45)
[2022-05-19] MEDS: ZOLPIDEM TARTRATE 10 MG TABLET PO PRN (20:45)
[2022-05-19] MEDS: ATORVASTATIN CALCIUM 20 MG TABLET PO SCH (20:45)
[2022-05-20] MEDS: MetFORMIN HCL 500 MG TABLET PO SCH ×2 (06:36→16:47)
[2022-05-20 08:28] VITALS: BP 138/75
[2022-05-20] MEDS: SERTRALINE HCL 100 MG TABLET PO SCH (08:45)
[2022-05-20] MEDS: AmLODIPine BESYLATE 2.5 MG TABLET PO SCH (08:45)
[2022-05-20] MEDS: LORazepam 2 MG TABLET PO PRN (08:45)
[2022-05-20] MEDS: HALOPERIDOL 5 MG TABLET PO PRN (08:45)
[2022-05-20] MEDS: ChlorproMAZINE HCL 50 MG TABLET PO SCH (08:45)
[2022-05-20] MEDS: DIVALPROEX SODIUM 500 MG DR TABLET PO SCH ×3 (08:50→16:47)
[2022-05-20 16:09] VITALS: BP 120/69
[2022-05-20] MEDS: ATORVASTATIN CALCIUM 20 MG TABLET PO SCH (21:09)
[2022-05-20] MEDS: ChlorproMAZINE HCL 100 MG TABLET PO SCH (21:09)
[2022-05-21] MEDS: MetFORMIN HCL 500 MG TABLET PO SCH ×2 (06:42→16:52)
[2022-05-21] MEDS: IBUPROFEN 400 MG TABLET PO PRN (07:43)
[2022-05-21 08:29] VITALS: BP 114/69
[2022-05-21] MEDS: ChlorproMAZINE HCL 50 MG TABLET PO SCH (08:33)
[2022-05-21] MEDS: DIVALPROEX SODIUM 500 MG DR TABLET PO SCH ×3 (08:33→16:52)
[2022-05-21] MEDS: AmLODIPine BESYLATE 2.5 MG TABLET PO SCH (08:33)
[2022-05-21] MEDS: SERTRALINE HCL 100 MG TABLET PO SCH (08:33)
[2022-05-21] MEDS: ALBUTEROL SULFATE HFA 90 MCG/PUFF 8 GM INHALER IH PRN (09:10)
[2022-05-21] MEDS: ACETAMINOPHEN 325 MG TABLET PO PRN (11:27)
[2022-05-21] MEDS: LORazepam 2 MG TABLET PO PRN (12:10)
[2022-05-21] MEDS: HALOPERIDOL 5 MG TABLET PO PRN (12:10)
[2022-05-21 16:24] VITALS: BP 146/83
[2022-05-21] MEDS: ChlorproMAZINE HCL 100 MG TABLET PO SCH (21:08)
[2022-05-21] MEDS: ATORVASTATIN CALCIUM 20 MG TABLET PO SCH (21:08)
[2022-05-22] MEDS: MetFORMIN HCL 500 MG TABLET PO SCH ×2 (06:33→16:37)
[2022-05-22] MEDS: IBUPROFEN 400 MG TABLET PO PRN (06:41)
[2022-05-22 07:13] LABS: COVID AG,FIA SOURCE NASAL SWAB
[2022-05-22] MEDS: ChlorproMAZINE HCL 50 MG TABLET PO SCH (08:22)
[2022-05-22] MEDS: DIVALPROEX SODIUM 500 MG DR TABLET PO SCH ×4 (08:22→18:00)
[2022-05-22] MEDS: LORazepam 2 MG TABLET PO PRN ×2 (08:22→13:33)
[2022-05-22] MEDS: SERTRALINE HCL 100 MG TABLET PO SCH (08:22)
[2022-05-22] MEDS: HALOPERIDOL 5 MG TABLET PO PRN ×2 (08:22→13:33)
[2022-05-22] MEDS: AmLODIPine BESYLATE 2.5 MG TABLET PO SCH (08:22)
[2022-05-22] MEDS: ALBUTEROL SULFATE HFA 90 MCG/PUFF 8 GM INHALER IH PRN (08:22)
[2022-05-22 09:12] VITALS: BP 141/84
[2022-05-22 17:06] VITALS: BP 137/88
[2022-05-22] MEDS: ZOLPIDEM TARTRATE 10 MG TABLET PO PRN (20:34)
[2022-05-22] MEDS: ATORVASTATIN CALCIUM 20 MG TABLET PO SCH (20:34)
[2022-05-22] MEDS: ChlorproMAZINE HCL 100 MG TABLET PO SCH (20:34)
[2022-05-23] MEDS: DIVALPROEX SODIUM 500 MG DR TABLET PO SCH ×4 (00:07→17:28)
[2022-05-23] MEDS: MetFORMIN HCL 500 MG TABLET PO SCH ×2 (06:32→17:28)
[2022-05-23 08:01] VITALS: BP 125/71
[2022-05-23] MEDS: SERTRALINE HCL 100 MG TABLET PO SCH (08:07)
[2022-05-23] MEDS: AmLODIPine BESYLATE 2.5 MG TABLET PO SCH (08:08)
[2022-05-23] MEDS: ChlorproMAZINE HCL 50 MG TABLET PO SCH ×2 (08:11→17:28)
[2022-05-23 13:00] VITALS: BP 140/88
[2022-05-23] MEDS: GuaiFENesin/D-METHORPHAN [SUGAR-FREE] 200-20MG/10 ML SYRUP UDCUP PO PRN (13:08)
[2022-05-23] MEDS: ALBUTEROL SULFATE HFA 90 MCG/PUFF 8 GM INHALER IH PRN (13:09)
[2022-05-23] MEDS: IBUPROFEN 400 MG TABLET PO PRN (13:13)
[2022-05-23 16:19] VITALS: BP 121/69
[2022-05-23] MEDS: ChlorproMAZINE HCL 100 MG TABLET PO SCH (20:05)
[2022-05-23] MEDS: ATORVASTATIN CALCIUM 20 MG TABLET PO SCH (20:05)
[2022-05-23] MEDS: ZOLPIDEM TARTRATE 10 MG TABLET PO PRN (20:05)
[2022-05-24] MEDS: DIVALPROEX SODIUM 500 MG DR TABLET PO SCH ×5 (00:03→23:37)
[2022-05-24] MEDS: MetFORMIN HCL 500 MG TABLET PO SCH ×2 (06:01→16:18)
[2022-05-24 08:19] VITALS: BP 156/98
[2022-05-24] MEDS: SERTRALINE HCL 100 MG TABLET PO SCH (08:20)
[2022-05-24] MEDS: AmLODIPine BESYLATE 2.5 MG TABLET PO SCH (08:20)
[2022-05-24] MEDS: ChlorproMAZINE HCL 50 MG TABLET PO SCH ×2 (08:20→16:18)
[2022-05-24] MEDS: ALBUTEROL SULFATE HFA 90 MCG/PUFF 8 GM INHALER IH PRN (10:53)
[2022-05-24] MEDS: LORazepam 2 MG TABLET PO PRN (11:06)
[2022-05-24] MEDS: HALOPERIDOL 5 MG TABLET PO PRN (11:06)
[2022-05-24] MEDS: IBUPROFEN 400 MG TABLET PO PRN (14:06)
[2022-05-24 14:07] VITALS: BP 148/87
[2022-05-24 15:07] VITALS: BP 142/88
[2022-05-24 17:01] VITALS: BP 108/69
[2022-05-24] MEDS: ChlorproMAZINE HCL 100 MG TABLET PO SCH (20:21)
[2022-05-24] MEDS: ATORVASTATIN CALCIUM 20 MG TABLET PO SCH (20:21)
[2022-05-25 05:40] VITALS: BP 138/84
[2022-05-25] MEDS: ALBUTEROL SULFATE HFA 90 MCG/PUFF 8 GM INHALER IH PRN ×2 (05:43→10:03)
[2022-05-25] MEDS: DIVALPROEX SODIUM 500 MG DR TABLET PO SCH ×3 (05:45→17:39)
[2022-05-25] MEDS: IBUPROFEN 400 MG TABLET PO PRN (05:46)
[2022-05-25] MEDS: MetFORMIN HCL 500 MG TABLET PO SCH ×2 (06:34→17:32)
[2022-05-25] MEDS: AmLODIPine BESYLATE 2.5 MG TABLET PO SCH (08:17)
[2022-05-25] MEDS: SERTRALINE HCL 100 MG TABLET PO SCH (08:17)
[2022-05-25] MEDS: ChlorproMAZINE HCL 50 MG TABLET PO SCH ×2 (08:17→17:00)
[2022-05-25] MEDS: HALOPERIDOL 5 MG TABLET PO PRN ×2 (08:18→20:33)
[2022-05-25 09:00] VITALS: BP 132/80
[2022-05-25] MEDS: LORazepam 2 MG TABLET PO PRN (10:04)
[2022-05-25] MEDS: GuaiFENesin/D-METHORPHAN [SUGAR-FREE] 200-20MG/10 ML SYRUP UDCUP PO PRN (12:34)
[2022-05-25 16:06] VITALS: BP 126/91
[2022-05-25] MEDS: ChlorproMAZINE HCL 100 MG TABLET PO SCH (20:33)
[2022-05-25] MEDS: ATORVASTATIN CALCIUM 20 MG TABLET PO SCH (20:35)
[2022-05-25] MEDS: ZOLPIDEM TARTRATE 10 MG TABLET PO PRN (21:39)
[2022-05-26] MEDS: DIVALPROEX SODIUM 500 MG DR TABLET PO SCH ×5 (00:07→23:13)
[2022-05-26] MEDS: MetFORMIN HCL 500 MG TABLET PO SCH ×2 (06:30→17:05)
[2022-05-26] MEDS: SERTRALINE HCL 100 MG TABLET PO SCH (08:29)
[2022-05-26] MEDS: AmLODIPine BESYLATE 2.5 MG TABLET PO SCH (08:29)
[2022-05-26] MEDS: ChlorproMAZINE HCL 50 MG TABLET PO SCH ×2 (08:29→17:05)
[2022-05-26 09:13] VITALS: BP 137/67
[2022-05-26] MEDS: HALOPERIDOL 5 MG TABLET PO PRN ×2 (11:37→16:04)
[2022-05-26] MEDS: GuaiFENesin/D-METHORPHAN [SUGAR-FREE] 200-20MG/10 ML SYRUP UDCUP PO PRN (11:38)
[2022-05-26] MEDS: ALBUTEROL SULFATE HFA 90 MCG/PUFF 8 GM INHALER IH PRN (11:55)
[2022-05-26 15:34] VITALS: BP 128/68
[2022-05-26] MEDS: ACETAMINOPHEN 325 MG TABLET PO PRN (15:34)
[2022-05-26 16:09] VITALS: BP 138/86
[2022-05-26] MEDS: ATORVASTATIN CALCIUM 20 MG TABLET PO SCH (20:15)
[2022-05-26] MEDS: ChlorproMAZINE HCL 100 MG TABLET PO SCH (20:15)
[2022-05-26 20:42] VITALS: BP 133/75
[2022-05-26] MEDS: IBUPROFEN 400 MG TABLET PO PRN (20:42)
[2022-05-27] MEDS: DIVALPROEX SODIUM 500 MG DR TABLET PO SCH ×3 (06:25→17:12)
[2022-05-27] MEDS: MetFORMIN HCL 500 MG TABLET PO SCH ×2 (06:49→17:12)
[2022-05-27] MEDS: SERTRALINE HCL 100 MG TABLET PO SCH (08:10)
[2022-05-27] MEDS: AmLODIPine BESYLATE 2.5 MG TABLET PO SCH (08:10)
[2022-05-27] MEDS: LORazepam 2 MG TABLET PO PRN ×2 (08:10→13:12)
[2022-05-27] MEDS: ChlorproMAZINE HCL 50 MG TABLET PO SCH ×2 (08:11→17:12)
[2022-05-27] MEDS: HALOPERIDOL 5 MG TABLET PO PRN ×2 (08:12→13:12)
[2022-05-27] MEDS: PEG 400/HYPROMELLOSE/GLYCERIN 15 ML OPHTHALMIC SOLUTION OU PRN (08:13)
[2022-05-27 08:28] VITALS: BP 141/88
[2022-05-27] MEDS: GuaiFENesin/D-METHORPHAN [SUGAR-FREE] 200-20MG/10 ML SYRUP UDCUP PO PRN ×2 (10:01→10:06)
[2022-05-27] MEDS: MAG HYDROX/AL HYDROX/SIMETH ES 30 ML SUSPENSION UDCUP PO PRN (11:03)
[2022-05-27 11:04] VITALS: BP 137/86
[2022-05-27] MEDS: IBUPROFEN 400 MG TABLET PO PRN (11:04)
[2022-05-27 12:04] VITALS: BP 138/81
[2022-05-27] MEDS: ALBUTEROL SULFATE HFA 90 MCG/PUFF 8 GM INHALER IH PRN (14:04)
[2022-05-27] MEDS: ChlorproMAZINE HCL 100 MG TABLET PO SCH (20:15)
[2022-05-27] MEDS: ZOLPIDEM TARTRATE 10 MG TABLET PO PRN (20:15)
[2022-05-27] MEDS: ATORVASTATIN CALCIUM 20 MG TABLET PO SCH (20:15)
[2022-05-28] MEDS: DIVALPROEX SODIUM 500 MG DR TABLET PO SCH ×5 (06:45→23:57)
[2022-05-28] MEDS: MetFORMIN HCL 500 MG TABLET PO SCH ×2 (06:45→16:06)
[2022-05-28 08:32] VITALS: BP 131/96
[2022-05-28] MEDS: AmLODIPine BESYLATE 2.5 MG TABLET PO SCH (08:55)
[2022-05-28] MEDS: SERTRALINE HCL 100 MG TABLET PO SCH (08:55)
[2022-05-28] MEDS: ChlorproMAZINE HCL 50 MG TABLET PO SCH ×2 (08:56→16:06)
[2022-05-28 16:56] VITALS: BP 124/79
[2022-05-28 18:06] LABS: COVID AG,FIA SOURCE NASOPHARYNGEAL
[2022-05-28] MEDS: ChlorproMAZINE HCL 100 MG TABLET PO SCH (20:54)
[2022-05-28] MEDS: ATORVASTATIN CALCIUM 20 MG TABLET PO SCH (20:54)
[2022-05-28] MEDS: ZOLPIDEM TARTRATE 10 MG TABLET PO PRN (23:17)
[2022-05-29] MEDS: DIVALPROEX SODIUM 500 MG DR TABLET PO SCH ×2 (06:10→12:42)
[2022-05-29] MEDS: MetFORMIN HCL 500 MG TABLET PO SCH (07:02)
[2022-05-29] MEDS: AmLODIPine BESYLATE 2.5 MG TABLET PO SCH (08:21)
[2022-05-29] MEDS: ChlorproMAZINE HCL 50 MG TABLET PO SCH (08:21)
[2022-05-29] MEDS: SERTRALINE HCL 100 MG TABLET PO SCH (08:21)
[2022-05-29 09:00] VITALS: BP 128/76
[2022-05-29] MEDS ORDERED: DIVA-112 PO (09:22)
[2022-05-29] MEDS ORDERED: SERT-440 PO (09:22)
[2022-05-29] MEDS ORDERED: AMLO2.5T96 PO (09:22)
[2022-05-29] MEDS ORDERED: METF-1211 PO (09:22)
[2022-05-29] MEDS ORDERED: ATOR20TA65 PO (09:22)
[2022-05-29] MEDS ORDERED: CHLO100T42 PO (09:22)
== END 2022-05-29 12:15 | disposition home or self-care (01) | DRG 750 ==
LOC: EMS 13:31 → 3EC 17:49
PROVIDERS: ADMIT Psychiatry & Neurology Child & Adolescent Psychiatry; ATTEND Psychiatry & Neurology Child & Adolescent Psychiatry
DX: F25.1 Schizoaffective disorder, depressive type (principal); R45.851 Suicidal ideations; E11.9 Type 2 diabetes mellitus without complications; F15.90 Other stimulant use, unspecified, uncomplicated; E78.5 Hyperlipidemia, unspecified; D72.829 Elevated white blood cell count, unspecified; I10 Essential (primary) hypertension; F41.9 Anxiety disorder, unspecified; Z20.822 Contact with and (suspected) exposure to COVID-19; Z59.00 Homelessness unspecified; Z79.899 Other long term (current) drug therapy; Z87.891 Personal history of nicotine dependence
CPT/HCPCS: 80053; 80061; 80164; 80307; 81001; 82962; 83036; 84703; 85025; 87081; G0480; J3535